=== PATIENT | female | born 1955 | race Caucasian/White ===

== ENCOUNTER 2024-10-10 19:53 | Emergency (ER) | payer MEDICARE, OTHER ==
[~2024-10-10] VITALS: Ht 162.6 cm; Wt 54.4 kg
[2024-10-10 20:22] LABS: PLATELET COUNT (AUTO) 499 K/uL (179-408); RED BLOOD CELL COUNT(AUTO) 4.20 MIL/uL (3.63-4.92); RED CELL DISTRIBUTION WIDTH 16.8 % (12.3-17.7); WHITE BLOOD COUNT (AUTO) 11.9 K/uL (3.8-11.8)
[2024-10-10 20:30] LABS: CREATININE 1.8 mg/dL (0.6-1.3); SODIUM SERUM 135 mmol/L (136-145); UREA NITROGEN, BLOOD 19 mg/dL (7-18)
[2024-10-10 20:36] LABS: ASPARTATE AMINOTRANSFERASE 15 U/L (15-37); TOTAL PROTEIN, SERUM 6.7 g/dL (6.4-8.2)
[2024-10-10 20:45] LABS: *BILIRUBIN,URIN NEGATIVE (NEGATIVE); *BLOOD, URINE NEGATIVE (NEGATIVE); *CLARITY,URINE CLEAR (CLEAR); *COLOR,URINE YELLOW (YELLOW); *KETONES,URINE TRACE (NEGATIVE); *PROTEIN,URINE NEGATIVE (NEGATIVE); *UROBILINOGEN,URINE 0.2 E.U./dl (NORMAL); LEUKOCYTE ESTERASE ,URINE TRACE (NEGATIVE); NITRITE, URINE NEGATIVE (NEGATIVE); UGLUCOSE NEGATIVE (NEGATIVE)
[2024-10-10] MEDS ORDERED: POTASSIUM CHLORIDE 20 MEQ TAB.PRT.SR ONE (20:50)
[2024-10-10 20:52] LABS: SQUAMOUS EPITHELIAL CELL,UR FEW /HPF (NONE SEEN)
[2024-10-10] MEDS: POTASSIUM CHLORIDE 20 MEQ TAB.PRT.SR PO ONE (20:52)
[2024-10-10] MEDS ORDERED: CITA20TA19 PO (21:14)
[2024-10-10] MEDS ORDERED: DICY10CA13 PO (21:14)
[2024-10-10] MEDS ORDERED: CLON0.1T PO (21:14)
[2024-10-10] MEDS ORDERED: AMLO-212 PO (21:14)
[2024-10-10] MEDS ORDERED: GABA600T12 PO (21:14)
[2024-10-10] MEDS ORDERED: ALBU8.5H8 IH (21:14)
[2024-10-11 00:05] VITALS: O2SAT 96
[2024-10-11] MEDS ORDERED: ALBUTEROL SULFATE 2.5 MG/3 ML NEBU ONE (00:08)
[2024-10-11] MEDS ORDERED: IPRATROPIUM BROMIDE 0.5 MG/2.5 ML NEBU ONE (00:08)
[2024-10-11] MEDS: IPRATROPIUM BROMIDE 0.5 MG/2.5 ML NEBU NEB ONE (00:15)
[2024-10-11] MEDS: ALBUTEROL SULFATE 2.5 MG/3 ML NEBU NEB ONE (00:16)
[2024-10-11 01:05] VITALS: O2SAT 99
[2024-10-11] MEDS ORDERED: ONDANSETRON 4 MG/2 ML VIAL ONE (02:02)
[2024-10-11] MEDS: IV NORMAL SALINE 1000 ML BAG IV ONE (02:15)
[2024-10-11] MEDS: ONDANSETRON 4 MG/2 ML VIAL IV ONE (02:15)
[2024-10-11] MEDS ORDERED: KETOROLAC TROMETHAMINE 15 MG INJ ONE (03:07)
[2024-10-11] MEDS: KETOROLAC TROMETHAMINE 15 MG INJ IVP ONE (03:11)
[2024-10-11] MEDS ORDERED: PRED50TA PO (03:44)
[2024-10-11] MEDS ORDERED: FAMO40TA7 PO (03:44)
[2024-10-11] MEDS ORDERED: SUCR1ORA4 PO (03:44)
[2024-10-11] MEDS ORDERED: MAG HYDROX/AL HYDROX/SIMETH 30 ML LIQUID UDC ONE (03:55)
[2024-10-11] MEDS: MAG HYDROX/AL HYDROX/SIMETH 30 ML LIQUID UDC PO ONE (03:57)
[2024-10-11 04:09] VITALS: BP 122/62; O2SAT 98
== END 2024-10-11 04:09 | disposition home or self-care (01) ==
LOC: ER 19:57
DX: J44.1 Chronic obstructive pulmonary disease with (acute) exacerbation (principal); J45.901 Unspecified asthma with (acute) exacerbation; R10.9 Unspecified abdominal pain; R00.0 Tachycardia, unspecified; G89.29 Other chronic pain; Z79.52 Long term (current) use of systemic steroids; Z79.899 Other long term (current) drug therapy; Z87.891 Personal history of nicotine dependence; Z88.0 Allergy status to penicillin; Z20.822 Contact with and (suspected) exposure to COVID-19
CPT/HCPCS: 99285; 74176; 71045; 87426; 80076; 80048; 81001; 83880; 83690; 85025; 85730; 84484 ×2; 36415; 93005 ×2; 96374; 96375; 96361; 94644; J1885; J2919; J2405; J7040; A4606; A4663; J3590